=== PATIENT | female | born 1990 | race Caucasian/White ===

== ENCOUNTER 2024-03-26 06:26 | Day surgery (SDC) | payer OTHER, SELFPAY | END 2024-03-26 11:33 | disposition home or self-care (01) | LOC: GI 06:26 | PROVIDERS: ATTENDING PHYSICIAN Internal Medicine Gastroenterology | DX: Z12.11 Encounter for screening for malignant neoplasm of colon (principal); D12.2 Benign neoplasm of ascending colon; K62.89 Other specified diseases of anus and rectum; K64.8 Other hemorrhoids | CPT/HCPCS: 45385; 45381; 88305 ==